=== PATIENT | male | born 1965 | race Caucasian/White ===

== ENCOUNTER → 2021-01-25 12:35 | Outpatient (CLI) | payer OTHER, SELFPAY | PROVIDERS: PCP Family Medicine; Visit Provider Physician Assistant Medical | DX: L02.519 Cutaneous abscess of unspecified hand (principal); L03.119 Cellulitis of unspecified part of limb | CPT/HCPCS: 87070; 87075; 87077; 87147; 87186; 87205 ==

== ENCOUNTER 2023-09-21 06:58 | Day surgery (SDC) | payer BC, SELFPAY ==
[2023-09-21 07:11] VITALS: BP 147/81; PULSE 78; RESP 18; TEMP 36.2; O2SAT 97
[2023-09-21] MEDS: LACTATED RINGERS 1,000 ML 42 ML IV (07:18)
--- NOTE | 2023-09-21 07:45 | PM.HP.1 ---
History of Present Illness History of Present Illness Date Patient Seen: 09/21/23 Time Patient Seen: 07:49 Chief complaint: SDC Narrative: First colonoscopy for colon cancer screening, no family history or symptoms of concern. [facility] Medical History Colon cancer screening Encounter for hepatitis C screening test for low risk patient Screening for HIV (human immunodeficiency virus) Social History Smoking Status: Never smoker alcohol intake: never Meds Home Medications and Allergies Home Medications Medication Instructions Recorded Confirmed Type lisinopril 20 1 tab PO BID 01/25/21 09/21/23 History mg-hydrochlorothiazide 12.5 mg tablet mupirocin 2 % topical ointment 1 applic topical TID #22 grams 01/25/21 01/30/21 Rx sodium,potassium,mag sulfates 17.5 See Rx Instructions PO .COMPLEX 08/24/23 Rx gram-3.13 gram-1.6 gram oral soln #354 mL (Suprep Bowel Prep Kit) Allergies Allergy/AdvReac Type Severity Reaction Status Date / Time ibuprofen AdvReac Severe SWELLING Unverified 09/21/23 07:17 Review of Systems Review of Systems ROS: Yes All systems reviewed with the patient and are negative except as otherwise documented Exam Vital Signs (past 8 hours): - 09/21/23 07:11 Temperature 97.1 F L Pulse Rate 78 Respiratory Rate 18 Blood Pressure 147/81 H Pulse Oximetry 97 Oxygen Delivery Method Room Air Oxygen Delivery Method Room Air Const General: cooperative, healthy appearing and comfortable Nutritional Appearance: overweight HENCO Head: normocephalic and atraumatic Eyes Sclera: sclerae normal Neck Neck: trachea midline and No JVD Resp Effort & Inspection: normal respiratory effort and able to speak in complete sentences Cardio Rate: regular rate Rhythm: regular rhythm GI Palpation: soft and No tender Skin General: turgor normal and No atrophy Neuro General: patient alert, patient awake and patient oriented x3 Cognition: normal cognition Psych Appearance: grossly normal Mental Status: mental status grossly normal Judgment: judgment good Assessment & Plan Assessment & Plan narrative: colonoscopy with anesthesia for colon cancer screening. Time Spent With Patient Time with patient: less than 30 minutes
--- NOTE | 2023-09-21 08:09 | PM.OP.COLON ---
Operative Date/Time/Diagnoses Date of procedure: 09/21/23 Time of procedure: 08:09 Pre-op diagnosis: Colon cancer screening Post-op diagnosis: same Procedure & Clinicians Study performed: Colonoscopy with anesthesia Same procedure as scheduled: Yes Indications: Colon cancer screening Surgeon: Aishwarya Mahajan Procedure Notes Procedure in detail: Preop diagnosis: Colon cancer screening Postop diagnosis: Same Operative procedure: Colonoscopy with anesthesia Findings: Small scant diverticuli of the descending colon, no polyps Procedure: Patient placed in lateral position. Rectal exam performed showing normal tone no masses. Colonoscope inserted into the rectum and advanced to ileocecal valve with minimal difficulty. Insufflation extraction of the scope and the above findings. Retroflex was included in the study. Impression: No polyps identified. Small scattered diverticuli of the descending colon Plan: Repeat colonoscopy in 10 years unless otherwise indicated by change in clinical condition Findings: divertiulosis Specimen(s): none sent Complications: none Post-procedure Recommendations: Colonoscopy in 10 years Follow up: as needed Disposition: PACU
[2023-09-21 08:12] VITALS: BP 106/66; PULSE 83; RESP 11; TEMP 36.6; O2SAT 96
[2023-09-21 08:18] VITALS: BP 113/64; PULSE 82; RESP 17; O2SAT 96
[2023-09-21 08:22] VITALS: BP 108/79; PULSE 91; RESP 11; O2SAT 95
[2023-09-21 08:26] VITALS: BP 105/67; PULSE 85; RESP 12; TEMP 36.4; O2SAT 95
== END 2023-09-21 08:36 | disposition home or self-care (01) ==
PROVIDERS: PCP Family Medicine; Referring Provider Surgery; Visit Provider Surgery
PROC: 0DJD8ZZ Inspection of Lower Intestinal Tract, Via Natural or Artificial Opening Endoscopic (ICD-10-PCS; CPT 45378; principal; 2023-09-21 07:45)
DX: Z12.11 Encounter for screening for malignant neoplasm of colon (principal); K57.30 Diverticulosis of large intestine without perforation or abscess without bleeding
CPT/HCPCS: 45378; J2704